=== PATIENT | female | born 1950 | race Caucasian/White ===

== ENCOUNTER → 2017-02-02 | Outpatient (CLI) | payer MEDICARE, BC ==
[~2017-02-02] MED LIST: ALPRAZOLAM PO; CELEXA PO; DETROL LA PO; FEMHRT 0.5 MG/21 TAB PO; HYDROCODON-ACE1 EAC9 PO; LASIX PO; LIPITOR20 MG PO; LORTAB 7.5-5001 TAB PO; MELOXICAM15 MG PO; PERCOCET5/325 PO; PHENERGAN25 MG PO; PREMPRO PO; SKELAXIN PO; TEMAZEPAM PO; ULTRAM PO; VOLTAREN25 MG PO
--- NOTE | ~2017-02-02 | US77 ---
[facility] A Service of [facility] RADIOLOGY TEXT RESULTS PATIENT: ANT WRIGHT LOCATION: [facility] : 52 UNIT #: [id number] AGE: [address]: Skyler Rosario MD SEX: F ORDER DR: [id number] [facility] [address] [place], [place] [address] [id number] O MR#: [id number] Acc #: [id number] NAME: ANT WRIGHT : 1950 SEX: F STUDY DATE/TIME: 02/02/2017 14:00 UNIT: [facility] ROOM: STUDY DESCRIPTION: US Kidney Bilateral Complete Attending Physician: Skyler Rosario M.D. Ordering Physician: Skyler Rosario M.D. Primary Care Physician: Skyler Cai M.D. MEDICAL IMAGING REPORT This report is preliminary unless electronic signature is present EXAM Renal ultrasound, 02/02/2017. HISTORY Bladder carcinoma 5 years ago. Follow-up. FINDINGS The right kidney measures 10.5 cm while the left kidney measures 9.1 cm in longitudinal dimensions. There is no evidence of hydronephrosis or nephrolithiasis. No cystic or solid mass lesions were seen on either kidney, and there is normal renal cortical echogenicity. Images of the bladder are normal. IMPRESSION 1. Negative renal ultrasound. 2. Images of the bladder are normal. Dictated by... Joe Higginbotham M.D. THIS IS AN ELECTRONICALLY VERIFIED REPORT Joe Higginbotham M.D. at 02/05/2017 2:17 PM THERESA/austin TD: 02/02/2017 18:27 JOB #: [id number] MEDICAL IMAGING REPORT Page 1 of 1 COPY
== END | disposition home or self-care (01) ==
LOC: CWCC 12:58
DX: C67.9 Malignant neoplasm of bladder, unspecified (principal)
CPT/HCPCS: 76770

== ENCOUNTER → 2017-05-25 | Outpatient (CLI) | payer MEDICARE, BC ==
--- NOTE | ~2017-05-25 | CT107 ---
[facility] A Service of [facility] RADIOLOGY TEXT RESULTS PATIENT: ANT WRIGHT [facility] : 52 UNIT #: [id number] AGE: [address]: IMTIAZ LEGER SEX: F ORDER DR: [id number] [facility] [address] [place], [place] [address] [id number] O MR#: [id number] Acc #: [id number] NAME: ANT WRIGHT : 1950 SEX: F STUDY DATE/TIME: 05/25/2017 13:53 UNIT: [facility] ROOM: STUDY DESCRIPTION: CT Pelvis Wo Cont Attending Physician: Generic Doctor Not In System Referring Physician: Generic Doctor Not In System Ordering Physician: Staff Doctor Not On Primary Care Physician: Skyler Cai M.D. MEDICAL IMAGING REPORT This report is preliminary unless electronic signature is present EXAM CT pelvis, 05/25/2017. HISTORY Chronic low back pain, pain across lower back and pelvis. No recent trauma. Pain started about 6 months ago. States both legs are going numb and are painful. FINDINGS Thin section axial images performed through the pelvis without contrast. Multiplanar reconstructed images reviewed. This CT exam was performed with one or more of the following radiation dose reduction techniques: automatic exposure control, adjustment of mA and/or kV according to patient size, and iterative reconstruction. No findings to suggest an occult fracture. In particular, the sacrum appears normal without evidence of insufficiency fracture. There is moderately advanced degenerative disc disease lower lumbar spine L3-4, and L4-5. L3-4 is only partially visualized. At L4-5 there is complete loss of the disc space with vacuum disc and a circumferential disc protrusion which appears to contribute to mild spinal and bilateral foraminal stenosis. There is lower lumbar spine facet arthropathy L4-5 and L5-S1. No significant SI joint arthropathy. Hip joints demonstrates minimal spurring at the fovea but no significant joint space loss. Pubic symphysis unremarkable. Pelvic and proximal thigh musculature appears normal. Piriformis musculature appears normal. No pelvic mass lesions identified. Bladder, uterus and adnexa appear normal. Visualized GI tract unremarkable. IMPRESSION 1. Moderately advanced lower lumbar spine degenerative disc disease and lower lumbar spine facet arthropathy. No high-grade stenosis STS. [facility] A Service of [facility] RADIOLOGY TEXT RESULTS PATIENT: ANT WRIGHT LOCATION: [facility] : 52 UNIT #: [id number] AGE: [address]: IMTIAZ LEGER SEX: F ORDER DR: identified on this limited evaluation of the spine. 2. No evidence of sacral fracture or occult pelvic fracture. 3. No pelvic mass and the visualized musculature unremarkable. Dictated by... Ashley Lam M.D. THIS IS AN ELECTRONICALLY VERIFIED REPORT Ashley Lam M.D. at 05/30/2017 2:45 PM Jose TD: 05/25/2017 20:55 JOB #: [id number] MEDICAL IMAGING REPORT Page 1 of 1 COPY
== END | disposition home or self-care (01) ==
LOC: CCAT 13:21
DX: M54.5 Low back pain (principal); G89.29 Other chronic pain; M51.36 Other intervertebral disc degeneration, lumbar region; M46.96 Unspecified inflammatory spondylopathy, lumbar region
CPT/HCPCS: 72192